=== PATIENT | male | born 1980 | race Caucasian/White ===

== ENCOUNTER 2019-03-30 13:03 | Emergency (ER) | payer OTHER, BC ==
[~2019-03-30] VITALS: Ht 406.4 cm; Wt 100.0 kg
[~2019-03-30 13:03] MED LIST: AMOXICILLIN500 MG PO; CLARITIN10 M1 PO; NO HOME MEDS; ULTRAM50 M1 PO
[2019-03-30] MEDS ORDERED: HYDROCO/APAP1 TA9 PO (14:12)
[2019-03-30 14:19] VITALS: BP 132/94
== END 2019-03-30 14:25 | disposition home or self-care (01) | DRG 563 ==
LOC: ED 13:03
PROC: 2W3FX1Z Immobilization of Left Hand using Splint (ICD-10-PCS; principal; 2019-03-30)
DX: S62.327A Displaced fracture of shaft of fifth metacarpal bone, left hand, initial encounter for closed fracture (principal); Y35.811A Legal intervention involving manhandling, law enforcement official injured, initial encounter; Y93.89 Activity, other specified; Y92.410 Unspecified street and highway as the place of occurrence of the external cause; Y99.0 Civilian activity done for income or pay

== ENCOUNTER 2020-07-18 15:04 | Emergency (ER) | payer BC ==
[~2020-07-18] VITALS: Ht 177.8 cm; Wt 103.0 kg
[~2020-07-18 15:04] MED LIST changes: +HYDROCO/APAP1 TA9 PO
[2020-07-18 16:53] LABS: HEMATOCRIT 45.3 % (39.0-50.0); HEMOGLOBIN 15.2 g/dl (14.0-18.0); IMMATURE GRANULOCYTES 0.5 % (0.0-5.0); MEAN CELL VOLUME 84.4 fL CALC (80.0-100.0); MEAN CORPUSCULAR HGB 28.3 pG CALC (26.0-32.0); MEAN CORPUSCULAR HGB CONC 33.6 g/dL CAL (32.0-36.0); NEUT# 5.68 thou/uL (1.82-7.42); RED BLOOD COUNT 5.37 mill/uL (4.70-6.10); RED CELL DISTRI WIDTH 12.1 % (11.5-15.5)
[2020-07-18 17:14] LABS: ALBUMIN 3.9 g/dL (3.2-5.0); ALKALINE PHOSPHATASE 63 u/l (38-126); ANION GAP 13 (6-22 (CALC)); BILIRUBIN, TOTAL 0.4 mg/dL (0.0-1.4); BUN 6 mg/dL (9-20); BUN/CREATININE RATIO 7 (12-20 (CALC)); CARBON DIOXIDE 23 mmol/l (22-30); CHLORIDE 99 mmol/l (95-108); CREATININE 0.8 mg/dL (0.7-1.3); GFR > 60 ML/MIN (>=60 (CALC)); GFR FOR AFR.AMER. > 60 ML/MIN (>=60 (CALC)); LIPASE 92 u/l (23-300); POTASSIUM 4.5 mmol/l (3.5-5.1); SGOT/AST 47 u/l (17-59); SODIUM 131 mmol/l (137-146); TOTAL PROTEIN 7.1 g/dL (6.3-8.2)
[2020-07-18] MEDS ORDERED: CHERATUSSIN PO (17:31)
[2020-07-18] MEDS ORDERED: ZPAK PO (17:31)
[2020-07-18 18:28] VITALS: BP 120/71
== END 2020-07-18 18:28 | disposition home or self-care (01) | DRG 177 ==
LOC: ED 15:04
PROVIDERS: Family Medicine
DX: U07.1 COVID-19 (principal); J12.82 Pneumonia due to coronavirus disease 2019

== ENCOUNTER 2023-01-07 10:31 | Emergency (ER) | payer OTHER, BC ==
[~2023-01-07] VITALS: Ht 177.8 cm; Wt 104.3 kg
[~2023-01-07 10:31] MED LIST changes: +CHERATUSSIN PO; +ZPAK PO
[2023-01-07 11:00] VITALS: BP 150/99
[2023-01-07 11:11] LABS: BASO% 0.5 % (0-3); EOS% 0.5 % (0-8); HEMATOCRIT 44.9 % (39.0-50.0); HEMOGLOBIN 14.7 g/dl (14.0-18.0); IMMATURE GRANULOCYTES 0.1 % (0.0-5.0); LYMPH% 25.5 % (15-41); MEAN CELL VOLUME 86.2 fL CALC (80.0-100.0); MEAN CORPUSCULAR HGB 28.2 pG CALC (26.0-32.0); MEAN CORPUSCULAR HGB CONC 32.7 g/dL CAL (32.0-36.0); MONO% 4.7 % (2-13); NEUT# 5.92 thou/uL (1.82-7.42); NEUT% 68.7 % (42-76); RED BLOOD COUNT 5.21 mill/uL (4.70-6.10)
[2023-01-07 11:19] LABS: ALKALINE PHOSPHATASE 74 u/l (38-126); ANION GAP 11 (6-22 (CALC)); BUN 15 mg/dL (9-20); BUN/CREATININE RATIO 19 (12-20 (CALC)); CARBON DIOXIDE 24 mmol/l (22-30); CHLORIDE 104 mmol/l (95-108); CREATININE 0.8 mg/dL (0.7-1.3); GFR FOR AFR.AMER. > 60 ML/MIN (>=60 (CALC)); GFR OTHER RACES > 60 ML/MIN (>=60 (CALC)); POTASSIUM 4.1 mmol/l (3.5-5.1); SGOT/AST 29 u/l (17-59); SODIUM 135 mmol/l (137-146); TOTAL PROTEIN 7.4 g/dL (6.3-8.2)
[2023-01-07 11:20] LABS: BILIRUBIN, TOTAL 0.7 mg/dL (0.2-1.3)
[2023-01-07 11:25] LABS: PROTHROMBIN TIME 10.4 SECONDS (9.0-12.5)
[2023-01-07 11:30] VITALS: BP 131/84
[2023-01-07 12:00] VITALS: BP 124/84
[2023-01-07 12:30] VITALS: BP 140/91
[2023-01-07] MEDS ORDERED: PROAIR HFA IN (12:32)
[2023-01-07] MEDS ORDERED: MEDDOSEPAK PO (12:32)
[2023-01-07 12:37] VITALS: BP 140/91
[2023-01-07 12:37] LABS: URINE BILIRUBIN - DIPSTICK NEGATIVE (NEGATIVE); URINE COLOR YELLOW; URINE GLUCOSE - DIPSTICK NEGATIVE (NEGATIVE); URINE KETONE NEGATIVE (NEGATIVE); URINE NITRITE - DIPSTICK NEGATIVE (Negative); URINE PROTEIN - DIPSTICK NEGATIVE (NEG-TRACE); URINE SPECIFIC GRAVITY 1.015; URINE UROBILINOGEN - DIPSTICK 0.2 E.U./dL (0.2)
[2023-01-07 12:38] LABS: URINE BLOOD DIPSTICK NEGATIVE (NEGATIVE); URINE LEUK ESTERASE NEGATIVE (NEGATIVE)
== END 2023-01-07 12:41 | disposition home or self-care (01) | DRG 918 ==
LOC: ED 10:31
PROVIDERS: Family Medicine
DX: T59.811A Toxic effect of smoke, accidental (unintentional), initial encounter (principal); J70.5 Respiratory conditions due to smoke inhalation; Y92.009 Unspecified place in unspecified non-institutional (private) residence as the place of occurrence of the external cause; Y99.0 Civilian activity done for income or pay